=== PATIENT | female | born 1970 | race Caucasian/White ===

== ENCOUNTER → 2019-07-06 | Outpatient (CLI) | payer OTHER ==
--- NOTE | 2019-07-06 13:30 | PCVCIMAG ---
APPROVED REPORT Study performed: 07/06/2019 11:41:55 EXAM: Comprehensive 2D, Doppler, and color-flow Echocardiogram Patient Location: Echo lab Status: routine BSA: 1.69 HR: 70 bpmBP: 140/88 mmHg Rhythm: NSR Other Information Study Quality: Good Risk Factors: Cardiac Risk Factors: FHX of CAD, Smoking Indications CAD Stent Left Ventricle Minimal hypokinesis basal inferior wall. LVEF is 60-65%. <Conclusion> LVEF is 60-65%. Minimal hypokinesis basal inferior wall. normal valvular structures
== END | disposition home or self-care (01) ==
LOC: PCVCIMAG 11:42
PROVIDERS: ATTEND Internal Medicine Cardiovascular Disease
DX: I25.10 Atherosclerotic heart disease of native coronary artery without angina pectoris (principal); E78.00 Pure hypercholesterolemia, unspecified; I21.3 ST elevation (STEMI) myocardial infarction of unspecified site; F17.200 Nicotine dependence, unspecified, uncomplicated; Z90.09 Acquired absence of other part of head and neck; Z82.49 Family history of ischemic heart disease and other diseases of the circulatory system; Z79.899 Other long term (current) drug therapy; Z90.49 Acquired absence of other specified parts of digestive tract
CPT/HCPCS: 93308